=== PATIENT | male | born 1995 | race Two or more races ===

== ENCOUNTER → 2017-10-03 | Emergency (ER) | payer OTHER ==
[~2017-10-03] VITALS: Ht 162.6 cm; Wt 75.7 kg
== END | disposition home or self-care (01) ==
LOC: ER 21:16
DX: S61.222A Laceration with foreign body of right middle finger without damage to nail, initial encounter (principal); W26.0XXA Contact with knife, initial encounter; Y93.89 Activity, other specified; Y92.89 Other specified places as the place of occurrence of the external cause; Y99.8 Other external cause status

== ENCOUNTER 2019-05-14 12:06 | Emergency (ER) | payer OTHER ==
[~2019-05-14] VITALS: Ht 165.1 cm; Wt 74.4 kg
== END 2019-05-14 15:27 | disposition home or self-care (01) ==
LOC: ER 12:06
DX: B33.8 Other specified viral diseases (principal); B96.0 Mycoplasma pneumoniae [M. pneumoniae] as the cause of diseases classified elsewhere

== ENCOUNTER 2019-08-02 18:16 | Emergency (ER) | payer OTHER ==
[~2019-08-02] VITALS: Ht 165.1 cm; Wt 78.0 kg
== END 2019-08-02 22:10 | disposition home or self-care (01) ==
LOC: ER 18:16
DX: J11.1 Influenza due to unidentified influenza virus with other respiratory manifestations (principal); B96.0 Mycoplasma pneumoniae [M. pneumoniae] as the cause of diseases classified elsewhere; B34.9 Viral infection, unspecified

== ENCOUNTER 2019-08-11 15:09 | Emergency (ER) | payer OTHER ==
[~2019-08-11] VITALS: Ht 170.2 cm; Wt 72.6 kg
== END 2019-08-11 20:08 | disposition home or self-care (01) ==
LOC: ER 15:09
DX: B33.8 Other specified viral diseases (principal); B96.0 Mycoplasma pneumoniae [M. pneumoniae] as the cause of diseases classified elsewhere

== ENCOUNTER 2020-09-10 10:06 | Emergency (ER) | payer OTHER ==
[~2020-09-10] VITALS: Ht 165.1 cm; Wt 81.6 kg
== END 2020-09-10 12:23 ==
LOC: ER 10:06
DX: S63.125A Dislocation of interphalangeal joint of left thumb, initial encounter (principal); M25.542 Pain in joints of left hand; X50.3XXA Overexertion from repetitive movements, initial encounter; Y93.89 Activity, other specified; Y92.89 Other specified places as the place of occurrence of the external cause; Y99.8 Other external cause status

== ENCOUNTER 2021-12-21 16:44 | Emergency (ER) | payer OTHER ==
[~2021-12-21] VITALS: Ht 165.1 cm; Wt 91.2 kg
[2021-12-21] MEDS ORDERED: ZITHROMAX200 MG PO (18:48)
[2021-12-21] MEDS ORDERED: BENZONATATE200 M1 PO (18:48)
== END 2021-12-21 19:05 | disposition home or self-care (01) ==
LOC: ER 16:44
DX: A49.3 Mycoplasma infection, unspecified site (principal)